=== PATIENT | male | born 2000 | race Caucasian/White ===

== ENCOUNTER 2023-02-22 10:02 | Emergency (ER) | payer MEDICAID, SELFPAY ==
[2023-02-22 10:03] VITALS: BP 177/153; PULSE 73; RESP 18; TEMP 36.1; O2SAT 99; BMI 18.4
--- NOTE | 2023-02-22 10:55 | RAD_ITS ---
STUDY: X-RAY - UNILATERAL RIBS ( LEFT ) WITH CHEST REASON FOR EXAM: Male, 22 years old. Deformity left fourth rib midclavicular line TECHNIQUE - RIBS: 4 view(s) of the ribs. TECHNIQUE - CHEST: Single PA view of the chest. COMPARISON: None. FINDINGS - RIBS: Normal visualized ribs without a demonstrated fracture. FINDINGS - CHEST: Hyperinflation. The lungs are clear. There is no demonstrated pleural abnormality. Normal size heart. Normal mediastinum and charly. Normal visualized pulmonary arteries. Normal visualized aortic arch and descending thoracic aorta. Normal visualized thoracic spine. Normal visualized ribs, clavicles, and shoulders. There is no demonstrated abnormality of the visualized soft tissue structures of the upper abdomen. RAD/Ribs Uni Min 3V w/PA Chest IMPRESSION: RIBS: Normal x-ray examination of the ribs. CHEST: Normal x-ray examination of the chest. Electronically Signed: Wilbert Jeffries MD at 11:45 EDT ,
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
[2023-02-22 11:18] VITALS: BP 128/79; PULSE 55; RESP 18; O2SAT 100
[2023-02-22 11:49] VITALS: PULSE 61; RESP 16; O2SAT 99
== END 2023-02-22 11:53 | disposition home or self-care (01) ==
PROVIDERS: Emergency Provider Emergency Medicine; Visit Provider Emergency Medicine
DX: S20.212A Contusion of left front wall of thorax, initial encounter (principal); F17.290 Nicotine dependence, other tobacco product, uncomplicated; Y04.8XXA Assault by other bodily force, initial encounter
CPT/HCPCS: 71101; 99282

== ENCOUNTER 2023-11-29 00:37 | Emergency (ER) | payer MEDICAID, SELFPAY ==
[2023-11-29 00:38] VITALS: BP 144/83; PULSE 100; RESP 18; TEMP 36.6; O2SAT 95; BMI 19.3
--- NOTE | 2023-11-29 00:44 | ED.VIS.GI ---
HPI HPI - GI History of Present Illness Chief Complaint: Abd Pain Informant: patient Abdominal Pain/Flank Pain Onset: Days (4) Context: Gradual Onset Timing: Intermittent and Lasts (Approximately 1 hour) Quality: Cramping Location: RUQ and RLQ Worsened by: - (Walking) Relieved by: - (Stretching) Nausea/Vomiting/Emesis GI Symptom: Negative for Nausea or Vomiting Diarrhea/Melena/Hematochezia GI Symptom: Positive for Diarrhea; Negative for Melena or Hematochezia Associated Symptoms Associated Symptoms: Negative for Dysuria, Frequency or Hematuria Narrative Narrative: Patient presents with abdominal pain that has been getting worse over the past 4 days. Patient states it has been intermittent. Patient states that when it comes on it lasts approximately 1 hour. Patient states it comes on gradually. Patient describes it as cramping. Patient states the pain is mainly on the right side of his abdomen. Patient states it is worse with walking but better with stretching. Patient denies any nausea or vomiting. Patient admits to some diarrhea but denies any melena or hematochezia. Patient denies any dysuria, frequency, or hematuria. Patient states his son was recently diagnosed with worms in his stool. Patient is concerned that he also has worms in his stool. Patient states his son is being potty trained. Patient states he does wash his hands anytime he changes his son's diaper. Patient denies any fevers or chills. [facility] Medical History No acute medical problems no medical history Home Medications NK 02/22/23 [History Last Taken Unknown] Allergy/AdvReac Type Severity Reaction Status Date / Time amoxicillin Allergy Other Verified 11/29/23 00:41 Penicillins Allergy Other Verified 11/29/23 00:41 Surgical History no surgical history no surgical history Social History household members: none Smoking Status: Current every day smoker tobacco type: e-cigarettes ROS ROS ED Constitutional Constitutional ED: Denies chills or fever(s) Eyes Eyes: Denies blurry vision or change in vision ENT ENT ED: Denies rhinorrhea or sore throat Cardiovascular Cardiovascular: Denies chest pain or palpitations Respiratory/Chest Respiratory/Chest: Denies cough or dyspnea Gastrointestinal Gastrointestinal: Reports abdominal pain and diarrhea; Denies nausea or vomiting Genitourinary Genitourinary ED: Denies dysuria or hematuria Musculoskeletal Musculoskeletal: Denies back pain or neck pain Integumentary Denies abscess or rash Neurologic Neurologic: Denies headache(s) or weakness Allergic/Immunologic Allergic/Immunologic ED: Denies mouth swelling or urticaria EXAM Physical Exam Const Vital Signs: 11/29/23 00:38 Temperature 97.8 F Temperature Source Temporal Pulse Rate 100 Respiratory Rate 18 Blood Pressure 144/83 H Blood Pressure Mean 103 Pulse Ox 95 Oxygen Delivery Method Room Air Positive well nourished and well developed General Appearance ED: well developed and NAD HEENT Reports moist mucous membranes Neck supple Resp normal respiratory effort and clear to auscultation bilaterally Cardio regular rate and regular rhythm GI non-distended Palpation: soft and tender epigastric, RLQ, RUQ, periumbilical and suprapubic; Negative for guarding or rebound tenderness present Extremity full ROM Neuro CN's II-XII intact bilaterally, moves all extremities and no sensory deficits noted Sensorium / Orientation: alert Motor Exam: strength 5/5 throughout Psych mental status grossly normal MDM MDM MDM Narrative Medical decision making narrative: Differential diagnosis includes gastroenteritis, diverticulitis, colitis, urinary tract infection, and pancreatitis. CBC will be obtained to assess for leukocytosis and anemia. Comprehensive metabolic profile will be obtained to assess for hepatic function, renal function, and electrolyte abnormality. Lipase will be obtained to assess for pancreatitis. Urinalysis will be obtained to assess for urinary tract infections. If the patient was able to produce a stool specimen here, it will be sent for ova and parasites. Lab Data Attestation: I reviewed the patient's lab results. Lab results narrative: CBC was reviewed and was within normal limits. Comprehensive metabolic profile was reviewed. Glucose was slightly elevated at 172 but the remainder was within normal limits. Lipase was reviewed and was normal. Urinalysis was reviewed. There is no evidence of urinary tract infection or hematuria. Labs: Laboratory Results - last 24 hr 11/29/23 11/29/23 00:50 02:15 WBC 10.0 RBC 5.54 Hgb 15.5 Hct 46.8 MCV 84.5 MCH 28.0 MCHC 33.1 RDW Std Deviation 38.9 RDW Coeff of Saniya 12.6 Plt Count 267 MPV 10.3 Immature Gran % (Auto) 0.400 Neut % (Auto) 77.7 H Lymph % (Auto) 13.4 L [place] % (Auto) 5.4 Eos % (Auto) 2.5 Baso % (Auto) 0.6 Absolute Neuts (auto) 7.8 H Absolute Lymphs (auto) 1.34 Nucleated RBC % 0 Sodium 139 Potassium 4.1 Chloride 106 Carbon Dioxide 28.0 Anion Gap 5 BUN 19 H Creatinine 1.03 Estim Creat Clear Calc 115.37 Est GFR (MDRD) Af Amer 117 Est GFR (MDRD) Non-Af 97 BUN/Creatinine Ratio 18.4 Glucose 172 H Calcium 9.5 Total Bilirubin 0.60 AST 22 ALT 25 Alkaline Phosphatase 98 Total Protein 7.5 Albumin 4.3 Globulin 3.2 Albumin/Globulin Ratio 1.3 Lipase 24 Urine Color Yellow Urine Clarity Clear Urine pH 7.0 Ur Specific [place] 1.010 Urine Protein Negative Urine Glucose (UA) Normal Urine Ketones Negative Urine Occult Blood Negative Urine Nitrite Negative Urine Bilirubin Negative Urine Urobilinogen Normal Ur Leukocyte Esterase Negative Urine RBC 0 SEEN Urine WBC 0 SEEN Ur Squamous Epith Cells 0 SEEN Urine Bacteria 0 SEEN Urine Mucus 0 SEEN Treatment and Re-Evaluation :: Patient was given IV fluids and Bentyl. Patient was advised of his findings. Patient is feeling better on reevaluation. Patient was unable to produce any stool for ova and parasite. Patient was instructed to make follow-up with his primary care physician in 5 to 7 days. Patient understood and was agreeable to plan. All questions were answered. Discharge Plan Triage Chief Complaint: Abd Pain ED Provider: Parker Mendez Dx/Rx/DC Orders Clinical Impression: Diarrhea, Abdominal pain Instructions: ED Diarrhea, Unknown Cause, ED Abdominal Pain Unkn Cause Male... Prescriptions: No Action NK Primary Care Provider: Care Physician,No Primary Referrals: Jamie Tanner MD [Med Staff - Septic Pump Truck Driver] - 5-7 Days Care Physician,No Primary [Primary Care Provider] - Disposition Disposition: Home, Self Care
[2023-11-29 01:19] LABS: Absolute Lymphocyte Count 1.34 X10^3/uL (0.83-4.51); Absolute Neutrophil Count 7.8 X10^3/uL (2.0-7.7); Basophil# 0.06 X10^3/uL; Basophil% 0.6 % (0-1); Eosinophil# 0.25 X10^3/uL; Eosinophils% 2.5 % (0-5); Hematocrit 46.8 % (40-54); Hemoglobin 15.5 g/dL (13.0-16.5); Lymphocyte # 1.34 X10^3/ul (0.83-4.51); Lymphocyte % 13.4 % (19-41); Mean Corp Hgb Conc 33.1 g/dL (32-36); Mean Corpuscular Volume 84.5 fL (80-94); Mean Platelet Vol. 10.3 fl (6.2-12.0); Monocyte# 0.54 X10^3/uL; Monocyte% 5.4 % (0-10); NRBC Flagged by Analyzer 0 % (0-5); Neutrophil # 7.76 X10^3/uL (2.7-7.7); Neutrophil % 77.7 % (47-70); Platelet Count 267 K/mm3 (150-450); RBC Distribution Width CV 12.6 % (11.6-14.6); RBC Distribution Width SD 38.9 fl (35.1-43.9); Red Blood Count 5.54 M/mm3 (4.6-6.2)
[2023-11-29] MEDS: 0.9% Normal Saline (1000mL) 1,000 ML 1000 ML IV (01:32)
[2023-11-29] MEDS: Dicyclomine 10 MG Capsule 20 MG PO (01:32)
[2023-11-29 02:04] LABS: ALB/GLOB Ratio 1.3 RATIO (0.9-2.4); AST(SGOT) 22 U/L (15-37); Alanine Aminotransfer ALT/SGPT 25 U/L (16-61); Albumin, Serum 4.3 g/dL (3.2-5.0); Alkaline Phosphatase 98 U/L (45-117); Anion Gap 5 (5-15); BUN 19 mg/dL (7-18); BUN/Creat Ratio 18.4 RATIO (10-20); Calcium,Total 9.5 mg/dL (8.5-10.1); Chloride 106 mmol/L (98-107); Creatinine, Serum 1.03 mg/dL (0.70-1.30); EST Glomerular Filtration Rate 97 mL/min (>60); Est Glom Filt Rate - Afr Amer 117 mL/min (>60); Estimated Creatinine Clearance 115.37 ml/min; Globulin 3.2 g/dL (2.2-4.2); Glucose 172 mg/dL (74-106); Lipase 24 U/L (13-75); Potassium 4.1 mmol/L (3.5-5.1); Protein, Total 7.5 g/dL (6.4-8.2); Sodium Level 139 mmol/L (136-145)
[2023-11-29 02:24] LABS: Bacteria 0 SEEN /hpf (None Seen); Mucous, Urine 0 SEEN /hpf (<or=2+); Red Blood Cells-Urine 0 SEEN /hpf (0-5); Squamous Epithelial Cells - UA 0 SEEN /hpf (0-5); White Blood Cells 0 SEEN /hpf (0-5)
[2023-11-29 02:26] LABS: Color, Urine Yellow (Yellow); Glucose, Dipstick Normal (Normal); Ketone-Dipstick Negative (Negative); Leukocyte Esterase-Dipstick Negative /ul (Negative); Nitrite-Dipstick Negative (Negative); Occult Blood-Urine Negative /ul (Negative); Protein-Dipstick Negative (Negative); Urine Bilirubin Dipstick Negative (Negative); Urine Clarity Clear (Clear); Urine Urobilinogen Normal (Normal)
[2023-11-29 03:25] VITALS: BP 117/82; PULSE 81; RESP 18; O2SAT 99
== END 2023-11-29 03:26 | disposition home or self-care (01) ==
PROVIDERS: Emergency Provider Emergency Medicine; Visit Provider Emergency Medicine
DX: R10.9 Unspecified abdominal pain (principal); R19.7 Diarrhea, unspecified; F17.290 Nicotine dependence, other tobacco product, uncomplicated
CPT/HCPCS: 80053; 81001; 83690; 85025; 96360; 96361; 99282

== ENCOUNTER 2023-12-20 13:50 | Emergency (ER) | payer MEDICAID, SELFPAY ==
[2023-12-20 13:51] VITALS: BP 126/81; PULSE 103; RESP 22; TEMP 37.2; O2SAT 100; BMI 19.1
--- NOTE | 2023-12-20 14:06 | EX.ED.VIS.UR ---
HPI HPI - URI History of Present Illness Chief Complaint: Cold Sx Informant: patient Onset/Context/Timing Onset: Days (4) Context: Gradual Onset Timing: Continuous Quality: Aching Location: Right upper chest Worsened by: - (Nothing) Relieved by: - (Nothing) Associated Symptoms Associated Symptoms: Positive for Nasal Congestion, Headache, Sinus Pressure, Myalgias, Shortness of Breath, Chest Pain (With coughing only) and Productive Cough; Negative for Nausea, Vomiting, Diarrhea, Nonproductive cough or Hemoptysis Narrative Narrative: Patient presents with sore throat, cough, fever, and upper respiratory congestion that has been constant for the past 4 days. Patient states it came on gradually. Patient admits to some aching pain in his right upper chest. Patient states this is worse with coughing. Patient states he is coughing up some green and yellow sputum. Patient admits to some subjective fevers and chills. Patient admits to some sinus pressure and general myalgias. Patient states he has had some vomiting after coughing but denies any other nausea or vomiting. Patient admits to an occipital headache and pain in his upper neck. ROS ROS ED Constitutional Constitutional ED: Reports chills, fever(s) and subjective Eyes Eyes: Reports blurry vision; Denies change in vision ENT ENT ED: Reports rhinorrhea; Denies sore throat Cardiovascular Cardiovascular: Reports chest pain; Denies palpitations Respiratory/Chest Respiratory/Chest: Reports cough and dyspnea Gastrointestinal Gastrointestinal: Denies nausea or vomiting Genitourinary Genitourinary ED: Denies dysuria or hematuria Musculoskeletal Musculoskeletal: Reports back pain and neck pain Integumentary Denies abscess or rash Neurologic Neurologic: Reports headache(s); Denies weakness Allergic/Immunologic Allergic/Immunologic ED: Denies mouth swelling or urticaria [facility] Medical History (Updated 12/20/23 @ 15:[address] Parker Mendez, ) No acute medical problems Medical History no medical history no medical history Home Medications NK 02/22/23 [History Last Taken Unknown] Allergy/AdvReac Type Severity Reaction Status Date / Time amoxicillin Allergy Other Verified 12/20/23 14:23 Penicillins Allergy Other Verified 12/20/23 14:23 Surgical History Hx of tonsillectomy Social History household members: none Smoking Status: Current every day smoker tobacco type: e-cigarettes EXAM Physical Exam Const Vital Signs: 12/20/23 13:51 Temperature 99 F Temperature Source Temporal Pulse Rate 103 H Respiratory Rate 22 H Blood Pressure 126/81 H Blood Pressure Mean 96 Pulse Ox 100 Oxygen Delivery Method Room Air Positive well nourished and well developed General Appearance ED: well developed and NAD HEENT Reports moist mucous membranes HEENT Narrative: Oropharynx is mildly erythematous. There are some postnasal drainage noted. Tympanic membranes are clear bilaterally. normocephalic Throat: posterior oropharynx abnormal Positive for cobblestoning and erythema Neck supple, no meningeal signs and no JVD Resp normal respiratory effort and clear to auscultation bilaterally Cardio Rate: regular rate Rhythm: regular rhythm GI non-tender and non-distended Palpation: soft Neuro oriented x3, CN's II-XII intact bilaterally and no sensory deficits noted Sensorium / Orientation: alert Motor Exam: strength 5/5 throughout Psych mental status grossly normal MDM MDM MDM Narrative Medical decision making narrative: Differential diagnosis includes pneumonia, viral illness, strep pharyngitis, and sinusitis. Chest x-ray will be obtained to assess for pneumonia. COVID-19, influenza, and RSV PCR will be obtained to assess for viral upper respiratory infection. Rapid strep PCR will be obtained to assess for strep pharyngitis. Lab Data Lab results narrative: COVID-19 PCR was reviewed and was negative. Influenza PCR was reviewed and was negative for influenza A and influenza B. RSV PCR was reviewed and was negative. Rapid strep was reviewed and was negative. Radiography Diagnostic Testing: Clinical Impression(s) from Imaging Studies Chest X-Ray 12/20/23 14:35 IMPRESSION: Hyperinflation. The lungs are clear. Electronically Signed: Wilbert Jeffries MD at 14:44 EST , PA and lateral chest x-ray was obtained. There are 2 views. On my independent interpretation, lung stuart are clear. There is normal cardiac silhouette. Bony thorax is normal. There is no acute process noted. Radiologist also interpreted the x-ray and agrees. Treatment and Re-Evaluation Narrative: Patient was advised of his findings. Patient was instructed to drink plenty of fluids. Patient was instructed to continue taking Tylenol and ibuprofen as needed for any aches or fevers. Patient was instructed to follow-up with his primary care physician in 5 to 7 days. Patient understood and was agreeable with the plan. All questions were answered. Discharge Plan Triage Chief Complaint: Cold Sx ED Provider: Parker Mendez Dx/Rx/DC Orders Clinical Impression: Upper respiratory infection, viral Instructions: ED URI, Viral, No Abx (Adult) Prescriptions: No Action NK Primary Care Provider: Care Physician,No Primary Referrals: Brad Iyer MD [Med Staff - Skiving Machine Operator] - 5-7 Days Care Physician,No Primary [Primary Care Provider] - Disposition Disposition: Home, Self Care
--- NOTE | 2023-12-20 14:35 | RAD_ITS ---
STUDY: X-RAY CHEST REASON FOR EXAM: Male, 23 years old. Cough TECHNIQUE: PA and lateral views of the chest. COMPARISON: Comparison is made with prior study dated February 22, 2023. FINDINGS: Hyperinflation. The lungs are clear. There is no demonstrated pleural abnormality. Normal size heart. Normal mediastinum and charly. Normal visualized pulmonary arteries. Normal visualized aortic arch and descending thoracic aorta. Normal visualized thoracic spine. Normal visualized ribs, clavicles, and shoulders. There is no demonstrated abnormality of the visualized soft tissue structures of the upper abdomen. RAD/Chest PA and Lateral IMPRESSION: Hyperinflation. The lungs are clear. Electronically Signed: Wilbert Jeffries MD at 14:44 EST ,
[2023-12-20 15:58] VITALS: BP 106/50; PULSE 53; RESP 16; TEMP 35.7; O2SAT 98
== END 2023-12-20 16:04 | disposition home or self-care (01) ==
PROVIDERS: Emergency Provider Emergency Medicine; Visit Provider Emergency Medicine
DX: J06.9 Acute upper respiratory infection, unspecified (principal); F17.290 Nicotine dependence, other tobacco product, uncomplicated; R51.9 Headache, unspecified; R07.9 Chest pain, unspecified; R05.9 Cough, unspecified; M54.9 Dorsalgia, unspecified
CPT/HCPCS: 71046; 87631; 87651; 99283

== ENCOUNTER 2024-04-27 17:00 | Emergency (ER) | payer MEDICAID, SELFPAY ==
[2024-04-27 17:01] VITALS: BP 124/65; PULSE 72; RESP 16; TEMP 36.6; O2SAT 100; BMI 17.0
--- NOTE | 2024-04-27 17:33 | EKG12_ITS ---
Test Reason : SYNCOPE Blood Pressure : / mmHG Vent. Rate : 057 BPM Atrial Rate : 057 BPM P-R Int : 124 ms QRS Dur : 102 ms QT Int : 398 ms P-R-T Axes : 016 078 055 degrees QTc Int : 387 ms Sinus bradycardia Otherwise normal ECG Confirmed by PRISCA MADDEN, NATASHA ([id number]), mapping editor ROXY NORMAN ([id number]) on 04/28/2024 8:11:31 AM Referred By: Confirmed By:NATASHA COPE MD
--- NOTE | 2024-04-27 17:34 | EDS_ITS ---
HPI History of Present Illness Chief Complaint: Syncope Informant: patient and spouse/S.O. Narrative Narrative: 23-year-old male presenting to the emergency room per evaluation of syncope while at work. Patient states that he was working putting boxes on a conveyor and noted that it was very hot and humid. He states that he was sweating and his heart was beating fast but not any different than normal. He states that all of a sudden he felt like he was on a pass out and found himself on his back. He states that he recovered quickly and now notes just some soreness in his occiput. He did not experience any chest pain or shortness of breath. He denies any arm or leg symptoms. He states he is never passed out before. He states is an otherwise healthy individual takes no medicines. [facility] Medical History No acute medical problems Home Medications ?Medication ?Instructions ?Recorded ?Last Taken ?Type NK 02/22/23 Unknown History Allergy/AdvReac Type Severity Reaction Status Date / Time amoxicillin Allergy Other Verified 04/27/24 17:02 Penicillins Allergy Other Verified 04/27/24 17:02 Surgical History Hx of tonsillectomy Social History household members: none Smoking Status: Former smoker ROS ROS ED Constitutional Constitutional ED: Denies chills, fever(s) or weight loss Eyes Eyes: Denies change in vision or diplopia ENT ENT ED: Denies ear pain, rhinorrhea or sore throat Cardiovascular Cardiovascular: Reports other Details: Syncope ; Denies chest pain, orthopnea, palpitations or racing heartbeat Respiratory/Chest Respiratory/Chest: Denies cough, dyspnea or orthopnea Gastrointestinal Gastrointestinal: Denies abdominal pain, diarrhea, nausea or vomiting Genitourinary Genitourinary ED: Denies dysuria, hematuria or urinary frequency Musculoskeletal Musculoskeletal: Denies arthralgias or myalgias Integumentary Denies abscess or rash Neurologic Neurologic: Denies headache(s) or weakness Psychiatric Psychiatric: Denies anxiety, depression, suicidal ideation or suicidal thoughts Endocrine Endocrinology: Denies polydipsia, polyphagia or polyuria Allergic/Immunologic Allergic/Immunologic ED: Denies mouth swelling, tongue swelling or urticaria EXAM Physical Exam Const Vital Signs: 04/27/24 17:01 04/27/24 17:12 Temperature 98 F Temperature Source Temporal Pulse Rate 72 Respiratory Rate 16 Respiratory Effort Normal Non-Labored Respiratory Pattern Normal Blood Pressure 124/65 H Blood Pressure Mean 84 Pulse Ox 100 Oxygen Delivery Method Room Air Positive well nourished and well developed General Appearance ED: well developed HEENT Reports normocephalic, head/scalp atraumatic and moist mucous membranes Eyes PERRL and EOMs intact bilaterally Neck no lymphadenopathy, supple and no JVD Resp normal respiratory effort and clear to auscultation bilaterally Cardio regular rate, regular rhythm and no murmurs GI normal to inspection, nondistended, normoactive bowel sounds and non-tender Palpation: soft Back/Spine no CVA tenderness and normal ROM Extremity normal to inspection General Extremety ED: Negative for edema General Extremity: Negative for edema Neuro oriented x3 and CN's II-XII intact bilaterally Sensorium / Orientation: alert Motor Exam: strength 5/5 throughout Psych mental status grossly normal Mood & Affect: Negative for depressed or tearful Skin no rashes or lesions noted and no wounds MDM MDM MDM Narrative Medical decision making narrative: Differential diagnosis includes but not limited to vasovagal syncope cardiac dysrhythmia, primary cardiac syncope valvular disorder, pneumothorax, dehydration, heat exhaustion. My independent interpretation of the chest x-ray is no acute process. Normal mediastinal silhouette. Patient has remained in a normal sinus rhythm while he has been here. Hemoglobin 15.5. Electrolytes are within normal limits. Troponin is negative glucose 89. Creatinine 0.76. EKG is normal sinus rhythm. This point patient be discharged home. Return if worsening or concerns follow- up with primary care 1 to 2 weeks History & Record Review Discussion w/independent historian: Patient Lab Data Attestation: I reviewed the patient's lab results. Labs: Laboratory Results - last 24 hr 04/27/24 17:10 WBC 9.1 RBC 5.49 Hgb 15.5 Hct 46.9 MCV 85.4 MCH 28.2 MCHC 33.0 RDW Std Deviation 40.0 RDW Coeff of Saniya 13.0 Plt Count 301 MPV 9.9 Immature Gran % (Auto) 0.200 Neut % (Auto) 69.0 Lymph % (Auto) 17.6 L [place] % (Auto) 7.8 Eos % (Auto) 4.9 Baso % (Auto) 0.5 Absolute Neuts (auto) 6.3 Absolute Lymphs (auto) 1.61 Nucleated RBC % 0 Sodium 138 Potassium 4.0 Chloride 105 Carbon Dioxide 29.0 Anion Gap 4 L BUN 9 Creatinine 0.76 Estim Creat Clear Calc 138.10 Est GFR (MDRD) Af Amer 165 Est GFR (MDRD) Non-Af 137 BUN/Creatinine Ratio 11.8 Glucose 89 Calcium 9.2 Troponin I High Sens < 3 L Radiography Diagnostic Testing: Clinical Impression(s) from Imaging Studies Chest X-Ray 04/27/24 17:47 IMPRESSION: No radiographic evidence of acute cardiopulmonary disease. Electronically Signed: hCarli Myers MD at 18:09 EDT Reading Location ID and State: [facility] / [place] , Service support , EKG Initial EKG: Attestation: I personally reviewed and interpreted this EKG as follows: Comments: Sinus bradycardia ventricular rate of 57 bpm. No significant QT prolongation or preexcitation noted. Discharge Plan Triage Chief Complaint: Syncope ED Provider: Jcarlos Sage Dx/Rx/DC Orders Clinical Impression: Syncope and collapse Instructions: Causes of Syncope Prescriptions: No Action NK Primary Care Provider: Care Physician,No Primary Referrals: Nina Espinosa MD [Med Staff - Active Staff] - 1-2 Weeks (for primary care) Parker Decker MD [Med Staff - Orthodontic Lab Technician] - Care Physician,No Primary [Primary Care Provider] - Print Language: [place] Disposition Disposition: Home, Self Care
[2024-04-27] MEDS: 0.9% Normal Saline (1000mL) 1,000 ML 1000 ML IV (17:45)
[2024-04-27 17:46] LABS: Absolute Lymphocyte Count 1.61 X10^3/uL (0.83-4.51); Absolute Neutrophil Count 6.3 X10^3/uL (2.0-7.7); Basophil# 0.05 X10^3/uL; Basophil% 0.5 % (0-1); Eosinophil# 0.45 X10^3/uL; Eosinophils% 4.9 % (0-5); Hematocrit 46.9 % (40-54); Hemoglobin 15.5 g/dL (13.0-16.5); Lymphocyte # 1.61 X10^3/ul (0.83-4.51); Lymphocyte % 17.6 % (19-41); Mean Corpuscular Hgb 28.2 pg (27.0-32.0); Mean Corpuscular Volume 85.4 fL (80-94); Mean Platelet Vol. 9.9 fl (6.2-12.0); Monocyte# 0.71 X10^3/uL; Monocyte% 7.8 % (0-10); NRBC Flagged by Analyzer 0 % (0-5); Platelet Count 301 K/mm3 (150-450); Red Blood Count 5.49 M/mm3 (4.6-6.2); White Blood Count 9.1 K/mm3 (4.4-11.0)
--- NOTE | 2024-04-27 17:47 | RAD_ITS ---
EXAM: XR CHEST, 1 VIEW CLINICAL INDICATION: syncope TECHNIQUE: Frontal view of the chest. COMPARISON: 12/20/2023 FINDINGS: LUNGS AND PLEURAL SPACES: Unremarkable. No consolidation or edema. No pneumothorax. No effusion. HEART: Unremarkable. Cardiac silhouette not enlarged. MEDIASTINUM: Central airways and mediastinal contour are unremarkable. BONES/JOINTS: Unremarkable. No acute fracture. SOFT TISSUES: Unremarkable. RAD/Chest 1 View (Portable) IMPRESSION: No radiographic evidence of acute cardiopulmonary disease. Electronically Signed: Charli Myers MD at 18:09 EDT ,
[2024-04-27 18:00] LABS: Anion Gap 4 (5-15); BUN 9 mg/dL (7-18); BUN/Creat Ratio 11.8 RATIO (10-20); Calcium,Total 9.2 mg/dL (8.5-10.1); Chloride 105 mmol/L (98-107); Creatinine, Serum 0.76 mg/dL (0.70-1.30); EST Glomerular Filtration Rate 137 mL/min (>60); Est Glom Filt Rate - Afr Amer 165 mL/min (>60); Glucose 89 mg/dL (74-106); Sodium Level 138 mmol/L (136-145); Troponin-I HS < 3 pg/mL (3.0-78.0)
[2024-04-27 18:42] VITALS: BP 122/78; PULSE 81; RESP 16; O2SAT 99
== END 2024-04-27 18:42 | disposition home or self-care (01) ==
PROVIDERS: Emergency Provider Emergency Medicine; Visit Provider Emergency Medicine
DX: R55 Syncope and collapse (principal); Z87.891 Personal history of nicotine dependence
CPT/HCPCS: 71045; 80048; 84484; 85025; 93005; 96360; 99284; J7030; A4216